=== PATIENT | female | born 1950 | race Caucasian/White ===

== ENCOUNTER 2017-11-18 14:30 | Emergency (ER) | payer MEDICARE, BC ==
[~2017-11-18] VITALS: Ht 20.3 cm; Wt 95.3 kg
[~2017-11-18 14:30] MED LIST changes: -CEF300 PO
--- NOTE | 2017-11-18 14:38 | ER Report ---
History and Physical Time Seen By MD: 14:37 Hx. of Stated Complaint: ELEVATED D-DIMER. SOB AT REST. HPI/ROS CHIEF COMPLAINT: Short of breath HISTORY OF PRESENT ILLNESS: This is a 67-year-old female who presents to the emergency department with chronic shortness of breath. Patient states that she was over at Dr. Carey's office today to establish care, she did mention to Dr. carcamo that she's had some shortness breath or last several years and has been increasing but no acute changes. Dr. Carey did EKG, collected blood work and noted that there was an elevated d-dimer and subsequently sent her to the emergency department for further evaluation. Patient arrives complaint free at this time no shortness of breath or chest pain. Pulse ox while I'm in the room is 93% on room air. She did tell me that she's had increasing shortness breath over the last several years, but hasn't really thought anything of it. The patient denies aches, fevers, chills, nausea, vomiting, diarrhea. REVIEW OF SYSTEMS: Constitutional: No fever, no chills. Eyes: No discharge. ENT: No sore throat. Cardiovascular: No chest pain, no palpitations. Respiratory: As above. Gastrointestinal: No abdominal pain, no vomiting. Genitourinary: No hematuria. Musculoskeletal: No back pain. Skin: No rashes. Neurological: No headache. Allergies: Coded Allergies: No Known Drug Allergies (Verified , 11/18/17) Home Meds Active Scripts Cefdinir 300 Mg Cap (OMNICEF 300 MG CAP (OR EQUIV)) 300 Mg Cap, 300 MG PO BID for 7 Days, #14 CAP 0 Refills Prov:DILLON CABRERA DRAFTER-BC 11/18/17 Reported Medications Furosemide (LASIX) Unknown Strength Tablet, 40 MG PO PRN, TAB 11/18/17 Aspirin (ASPIRIN) 325 Mg Tablet, 325 MG PO QHS 08/13/13 Discontinued Reported Medications Prednisone 5 Mg Tab (PREDNISONE 5 MG TAB) 5 Mg Tablet, 5 MG PO Q4DAYS 08/13/13 Past Medical/Surgical History Patient has a past medical and surgical history of varicose veins, superficial clot to the right ankle, has been on aspirin, GERD, possible polymyalgia rheumatica, right knee injury, facial skin cancer, skin cancer removed, tonsillectomy, hysterectomy. Hx Smoking: No Smoking Status: Never Smoker Hx Substance Use Disorder: No Hx Alcohol Use: Yes Constitutional Vital Sign - Last 24 Hours 11/18/17 11/18/17 11/18/17 11/18/17 14:35 14:36 15:30 16:00 Temp 98.7 Pulse 87 75 69 Resp 22 B/P (MAP) 143/90 (107) 143/90 134/72 (92) 117/77 (90) Pulse Ox 91 92 91 O2 Delivery Room Air 11/18/17 16:30 Pulse 66 B/P (MAP) 120/71 (87) Pulse Ox 91 Physical Exam General Appearance: The patient is alert, has no immediate need for airway protection and no signs of toxicity. Eyes: Pupils equal and round no pallor or injection. ENT, Mouth: Mucous membranes are moist. Respiratory: There are no retractions, lungs are clear to auscultation. Cardiovascular: Regular rate and rhythm, no murmurs, clicks or rubs. Gastrointestinal: Abdomen is soft and non tender, no masses, bowel sounds normal. Neurological: Alert and oriented 4. Moving all x-rays. Following all commands. No focal neuro deficits. Skin: Warm and dry, no rashes. Musculoskeletal: Neck is supple non tender. Extremities are nontender, nonswollen and have full range of motion. DIFFERENTIAL DIAGNOSIS: After history and physical exam differential diagnosis was considered for shortness of breath including but not limited to pulmonary infectious process, COPD, asthma, pulmonary embolus and congestive heart failure. Medical Decision Making Data Points Laboratory Hematology Test 11/18/17 14:45 Troponin I < 0.012 ng/ml Chemistry Test 11/18/17 14:45 Troponin I < 0.012 ng/ml EKG/Imaging EKG Interpretation 12 lead EKG: Time of EKG 1440. Rhythm: normal sinus rhythm, ventricular rate 72 bpm. [place]: normal QRS: normal ST segments: No ST elevation or depression. QTC 473 ms. Imaging PATIENT NAME: Cathleen De La Cruz : 1950 MR: [id number] V: [id number] EXAM DATE: [id number] ORDERING PHYSICIAN: DILLON CABRERA TECHNOLOGIST: Location: [facility] [place] Patient: Cathleen De La Cruz : 1950 Visit/Account:[id number] Date of Sevice: 11/18/2017 CTA CHEST WW/O CNTR (PULM ANG) HISTORY: sob, elevated d dimer ADDITIONAL HISTORY: None. TECHNIQUE: CTA chest with intravenous contrast. Axial imaging acquired following administration of IV contrast timed for maximum opacification of the pulmonary arterial vasculature. Slab 3-D MIP reconstructed images were also created for further evaluation and interpretation. Reconstruction of the source data set includes multiplanar 2-D in the sagittal and coronal planes and 3-D reconstructed coronal slab MIP series. 3-D images were created by the technologist. Dose Lowering Technique One of the following dose optimization techniques was utilized in the performance of this exam: Automated exposure control; adjustment of the mA and/ or kV according to the patient's size; or use of an iterative reconstruction technique. Specific details can be referenced in the facility's radiology CT exam operational policy. CONTRAST: 75 mL Isovue-370 COMPARISON: PA and lateral chest performed earlier today FINDINGS: Lungs/pleura: There are subtle patchy groundglass opacities throughout the lungs most prominent in the upper lobes. Mild linear stranding in the left lower lobe may represent scarring versus discoid atelectasis. There is no evidence of pleural effusions. Heart/vessels: There is no evidence of pulmonary emboli. The pulmonary trunk is dilated at 4.2 cm. Main pulmonary arteries are prominent as well. There is flattening of the interventricular septum and the right ventricle appears larger than the left. These findings are suggestive of right heart strain Mediastinum/lymph nodes: Negative. Visualized upper abdomen: Small hiatal hernia Bones/soft tissues: Thoracic scoliosis. No aggressive appearing bone lesions are seen Additional findings: None IMPRESSION: There are subtle patchy ground glass opacities of the lungs most prominent in the upper lobes which could represent an acute infectious/inflammatory process. There is no evidence of pulmonary emboli The pulmonary trunk and main pulmonary arteries are dilated. There is flattening of the interventricular septum the right ventricle appears larger than the left. These findings are just above right heart strain Results were called to DILLON CABRERA at 11/18/2017 4:00 PM. Report Dictated By: Renea Feldman MD at 11/18/2017 3:47 PM Report E-Signed By: Renea Feldman MD at 11/18/2017 4:00 PM WSN:[email or web address] ED Course/Re-evaluation Clinical Indication for ER IV: IV Access ED Course The patient was admitted to room. A history physical were obtained. Differential diagnoses were considered. An IV was started. Repeat troponin was negative. EKG in the emergency department showing a normal sinus rhythm, no ST depression or elevation noted. QTc 473ms. CTA was negative for a pulmonary embolus however it is showing some patchy ground opacities which could represent an infectious process. The pulmonary trunk and main pulmonary arteries are dilated which could represent pulmonary hypertension. I did leave a message with Dr. Carey's office after CT results of the CTA, the troponin and the repeat EKG. I wanted to review the results with her. My plan is to treat the patient for community-acquired pneumonia outpatient, and have her follow-up with Dr. Carey in 5-7 days or sooner for follow-up. I discussed these results with the patient and her and discussed with them that she needs to follow-up with Dr. Carey for further evaluation of the pulmonary hypertension. A prescription for Omnicef was sent to the patient's pharmacy. Patient had no other questions or concerns at this time and was discharged home. Patient was stable had good oxygenation at the time of discharge at 93-95% . Decision to Disposition Date: Nov 18, 2017 Decision to Disposition Time: 16:29 Depart Departure Latest Vital Signs Vital Signs Date Time Temp Pulse Resp B/P (MAP) Pulse Ox O2 Delivery O2 Flow Rate FiO2 11/18/17 16:30 66 120/71 (87) 91 11/18/17 14:36 98.7 22 Room Air Impression: Primary Impression: Community acquired pneumonia Condition: Improved Disposition: HOME OR SELF-CARE Referrals: GRACY CAREY MD (PCP) New Scripts Cefdinir 300 Mg Cap (OMNICEF 300 MG CAP (OR EQUIV)) 300 Mg Cap 300 MG PO BID for 7 Days, #14 CAP 0 Refills Prov: DILLON CABRERA DRAFTER-BC 11/18/17 Patient Instructions: Community Acquired Pneumonia (ED) Additional Instructions: You do not have a blood clot in your lungs. Drink plenty of water. Get plenty of rest. Take the Omnicef as directed. Follow-up with Dr. Carey in 5-7 days. You will likely need to see a specialist for Pulmonary Hypertension. Return to the ED for any other concerns or worsening symptoms. Problem Qualifiers Primary Impression: Community acquired pneumonia Laterality: unspecified laterality Qualified Codes: J18.9 - Pneumonia, unspecified organism DILLON CABRERAP- Nov 18, 2017 14:38
--- NOTE | 2017-11-18 15:04 | EKG ---
[place] [facility] [place] NAME: KOLE CHEN : [id number] MR: [id number] V: [id number] EXAM DATE: ORDERING PHYSICIAN: DILLON CABRERA TECHNOLOGIST: EDIL Raymond Reason : SOB Blood Pressure : / mmHG Vent. Rate : 072 BPM Atrial Rate : 072 BPM P-R Int : 156 ms QRS Dur : 106 ms QT Int : 432 ms P-R-T Axes : 014 -19 033 degrees QTc Int : 473 ms Sinus rhythm Borderline left axis Nonspecific interventricular conduction delay No previous ECGs available Confirmed by KEVIN JOHN ([id number]) on 11/19/2017 3:43:49 PM Referred By: Confirmed By:KEVIN JOHN
[2017-11-18] MEDS ORDERED: IOPAMIDOL 76% 75 ML INFUS BTL 75 ML ONE (15:10)
[2017-11-18] MEDS ORDERED: NS 0.9% 20 ML SDV 100 ML ONE (15:10)
--- NOTE | 2017-11-18 16:04 | RADIOLOGY IMAGING REPORT ---
FACILITY: [facility] PATIENT NAME: Cathleen De La Cruz : 1950 MR: [id number] V: [id number] EXAM DATE: ORDERING PHYSICIAN: DILLON CABRERA TECHNOLOGIST: Location: [facility] Patient: Cathleen De La Cruz : 1950 Visit/Account:[id number] Date of Sevice: 11/18/2017 CTA CHEST WW/O CNTR (PULM ANG) HISTORY: sob, elevated d dimer ADDITIONAL HISTORY: None. TECHNIQUE: CTA chest with intravenous contrast. Axial imaging acquired following administration of IV contrast timed for maximum opacification of the pulmonary arterial vasculature. Slab 3-D MIP louise nstructed images were also created for further evaluation and interpretation. Reconstruction of the [place] [facility] [place] set includes multiplanar 2-D in the sagittal and coronal planes and 3-D reconstructed mela nal slab MIP series. 3-D images were created by the technologist. Dose Lowering Technique One of the following dose optimization techniques was utilized in the performance of this exam: Autom ated exposure control; adjustment of the mA and/or kV according to the patient's size; or use of an i terative reconstruction technique. Specific details can be referenced in the facility's radiology C T exam operational policy. CONTRAST: 75 mL Isovue-370 COMPARISON: PA and lateral chest performed earlier today FINDINGS: Lungs/pleura: There are subtle patchy groundglass opacities throughout the lungs most prominent in t he upper lobes. Mild linear stranding in the left lower lobe may represent scarring versus discoid a telectasis. There is no evidence of pleural effusions. Heart/vessels: There is no evidence of pulmonary emboli. The pulmonary trunk is dilated at 4.2 cm. Main pulmonary arteries are prominent as well. There is flattening of the interventricular septum a nd the right ventricle appears larger than the left. These findings are suggestive of right heart st rain Mediastinum/lymph nodes: Negative. Visualized upper abdomen: Small hiatal hernia Bones/soft tissues: Thoracic scoliosis. No aggressive appearing bone lesions are seen Additional findings: None IMPRESSION: There are subtle patchy ground glass opacities of the lungs most prominent in the upper lobes which c ould represent an acute infectious/inflammatory process. There is no evidence of pulmonary emboli The pulmonary trunk and main pulmonary arteries are dilated. There is flattening of the interventric ular septum the right ventricle appears larger than the left. These findings are just above right he art strain Results were called to DILLON CABRERA at 11/18/2017 4:00 PM. Report Dictated By: Renea Feldman MD at 11/18/2017 3:47 PM Report E-Signed By: Renea Feldman MD at 11/18/2017 4:00 PM DOMENICN:[email or web address]
[2017-11-18 16:30] VITALS: BP 120/71
[2017-11-18] MEDS ORDERED: CEF300 PO (16:31)
[2017-11-20] MEDS ORDERED: LEVO750T44 PO (11:09)
== END 2017-11-18 17:00 | disposition home or self-care (01) ==
LOC: ER 14:39
DX: J18.9 Pneumonia, unspecified organism (principal)
CPT/HCPCS: 71275; 84484; 93005; 99284; J7050; Q9967

== ENCOUNTER → 2017-11-18 | Outpatient (CLI) | payer MEDICARE, BC ==
[~2017-11-18] MED LIST: ASPI-757 PO; CEF300 PO; FUR40 PO; FURO20TA19 PO; LOR5 PO; PRE5 PO
[2017-11-18 11:21] LABS: PLATELET COUNT, AUTOMATED 218 K/uL (150-450)
--- NOTE | 2017-11-18 13:00 | RADIOLOGY IMAGING REPORT ---
FACILITY: [facility] PATIENT NAME: Cathleen De La Cruz : 1950 MR: [id number] V: [id number] EXAM DATE: ORDERING PHYSICIAN: GRACY PALAFOX TECHNOLOGIST: Location: [facility] Patient: Cathleen De La Cruz : 1950 Visit/Account:[id number] Date of Sevice: 11/18/2017 Exam type: CHEST PA AND LAT History: Dyspnea, hypoxia, chest discomfort Comparison: None. Findings: There is hyperinflation of the lung dozier. There is no evidence of a pneumothorax or pneumomediasti num. No evidence of focal infiltrates pleural effusions or pulmonary edema. Cardiac lead is normal in size. Central pulmonary arteries are prominent. Mild spondylotic changes thoracic spine IMPRESSION: 1. Hyperinflation lung dozier and prominence of the central pulmonary arteries suggesting COPD. Results were called to GRACY PALAFOX at 11/18/2017 12:55 PM. Report Dictated By: Renea Feldman MD at 11/18/2017 12:52 PM Report E-Signed By: Renea Feldman MD at 11/18/2017 12:55 PM WSN:[email or web address]
== END ==
LOC: LAB 10:56
PROVIDERS: ATTEND Emergency Medicine
DX: R91.8 Other nonspecific abnormal finding of lung field (principal); R06.00 Dyspnea, unspecified; R94.31 Abnormal electrocardiogram [ECG] [EKG]; E66.9 Obesity, unspecified
CPT/HCPCS: 36415; 71046; 82040; 82247; 82310; 82374; 82435; 82565; 82947; 83036; 83735; 83880; 84075; 84132; 84155; 84295; 84443; 84450; 84460; 84484; 84520; 85025; 85379

== ENCOUNTER → 2017-11-21 | Outpatient (CLI) | payer MEDICARE, BC ==
[~2017-11-21] MED LIST changes: +CEF300 PO; +LEVO750T44 PO
--- NOTE | 2017-11-21 17:42 | RADIOLOGY IMAGING REPORT ---
[place] [facility] [place]: Cathleen De La Cruz : 1950 MR: [id number] V: [id number] EXAM DATE: ORDERING PHYSICIAN: GRACY PALAFOX TECHNOLOGIST: [place] [facility] [place] Cathleen De La Cruz : 1950 Visit/Account:[id number] Date of Sevice: 11/21/2017 EXAMINATION: Bilateral lower extremity deep vein duplex Doppler 11/21/2017 2:48 PM History: Bilateral lower extremity edema. Remote history of left calf DVT. COMPARISON: None FINDINGS: Grayscale, duplex and color Doppler interrogation of the bilateral lower extremity deep veins from co mmon femoral vein to proximal calf was completed. The greater saphenous vein in the right and left pr oximal thigh was evaluated using similar technique. Right lower extremity: Common femoral vein negative Femoral vein negative Deep femoral vein - negative Popliteal vein negative Visualized deep calf veins negative Greater saphenous vein in the proximal thigh negative Popliteal fossa: negative Left lower extremity: Common femoral vein negative Femoral vein negative Deep femoral vein - negative Popliteal vein negative Visualized deep calf veins negative Greater saphenous vein in the proximal thigh negative Popliteal fossa: negative IMPRESSION: Negative bilateral lower extremity evaluation for DVT. Report Dictated By: Holland Finch MD at 11/21/2017 5:37 PM Report E-Signed By: Holland Finch MD at 11/21/2017 5:38 PM WSN:[id number]
--- NOTE | 2017-11-21 17:43 | RADIOLOGY IMAGING REPORT ---
FACILITY: [facility] PATIENT NAME: Cathleen De La Cruz : 1950 MR: [id number] V: [id number] EXAM DATE: ORDERING PHYSICIAN: GRACY PALAFOX TECHNOLOGIST: Location: [facility] [place] Patient: Cathleen De La Cruz : 1950 Visit/Account:[id number] Date of Sevice: 11/21/2017 DEXA Scan 11/21/2017 2:48 PM HISTORY: Postmenopausal estrogen deficiency Comparison: None available. LUMBAR SPINE: The bone mineral density (BMD) measured from L1-L4 correlates with a Z-score -0.6 and a T-score of -1 .2 which is mildly osteopenic as defined by the World Health Organization. The corresponding risk of fracture in the lumbar spine is increased 2-3 times compared with a young adult reference population . HIP: Bone mineral density (BMD) measured in the Left total hip region correlates with a Z-score -0.8 and a T-score of -1.4 which is mildly osteopenic as defined by the World Health Organization. The corresp onding risk of fracture in the hip is increased 2-3 times compared with a [facility] adult [facility]. Bone mineral density (BMD) measured in the Femoral Neck region measures 0.797 g/cm2. T-score is -1.7 . Impression: 1. Lumbar spine: Mild osteopenia. 2. Left Total Hip: Mild osteopenia. 3. Femoral Neck: Bone Mineral Density is 0.797 g/cm2. Moderate osteopenia. The next DEXA scan of this patient should include the following sites: L1-L4 and the left hip. FRAX? WHO Fracture Risk Assessment Tool link: <http://www.shef.ac.uk/FRAX/tool.jsp?locationValue=9> PLEASE NOTE: 1) The World Health Organization defines low BMD as follows: T-score Normal > -1 Osteopenia < -1 and > -2.5 Osteoporosis < -2.5 without fractures Established osteoporosis < -2.5 with fractures 2) In general, you may wish to consider: Diagnosis Treatment Follow-up DEXA Normal BMD Prevention 2-3 years Osteopenia Prevention/therapy 1-2 years Osteoporosis Therapy Yearly 3) Fracture risk estimated from the T-score is more accurate for vertebral fractures (often spontane ous) than for hip fractures. Report Dictated By: Holland Finch MD at 11/21/2017 5:38 PM Report E-Signed By: Holland Finch MD at 11/21/2017 5:39 PM WSN:[id number]
== END ==
LOC: US 03:11
PROVIDERS: ATTEND Emergency Medicine
DX: Z13.820 Encounter for screening for osteoporosis (principal); M85.89 Other specified disorders of bone density and structure, multiple sites; R60.0 Localized edema; Z78.0 Asymptomatic menopausal state
CPT/HCPCS: 77080; 93970

== ENCOUNTER → 2017-11-26 | Outpatient (CLI) | payer MEDICARE, BC ==
--- NOTE | 2017-11-27 20:28 | RADIOLOGY IMAGING REPORT ---
FACILITY: [facility] [place] PATIENT NAME: KOLE CHEN : [id number] MR: [id number] V: [id number] EXAM DATE: ORDERING PHYSICIAN: GRACY PALAFOX TECHNOLOGIST: Marianna Langford EXAMINATION:TWO-DIMENSIONAL ECHOCARDIOGRAPH REASON:ENLARGED PULMONARY ARTERIES 2D Measurements (normal values in centimeters) LV endLV endRV endVent.LV PostAorticLeftPercent DiastolicSystolicDiastolicSeptumWallRootAtriumShortening (3.5-5.7)(0.9-2.6)(0.6-1.1)(0.6-1.1)(2.0-3.7)(1.9-4.0)(25-35%) [id number] STROKE VOLUME: 78ml ESTIMATED EJECTION FRACTION:55% PARASTERNAL LONG AXIS: Overall left ventricular systolic function does appear to be normal. The right ventricle appears to be mildly enlarged. Other chamber sizes appear to be normal with the left ventricle being in the upper range of normal size. No wall motion abnormalities are noted. Color examination of the valves reveals a trace of mitral & tricuspid insufficiency. PARASTERNAL SHORT AXIS: Again overall left ventricular systolic function appears to be normal. Right ventricle appears to be mildly enlarged. The aortic valve is trileaflet in configuration with mild aortic sclerosis but no stenosis. Color examination of the aortic valve was unremarkable. Color examination of the pulmonic valve revealed a trace of pulmonic insufficiency. There is also a trace of tricuspid insufficiency noted. APICAL FOUR AND TWO CHAMBER: Normal left ventricular ejection fraction. Right ventricle is mildly enlarged. The other chamber sizes appear to be normal. Aortic valve area & mitral valve area both measure within normal ranges at 2.9 & 3.2cm2 respectively. The left atrial & right atrial volumes are measured within normal ranges at 25 & 24ml/m2. Tricuspid regurgitation Vmax measured 1.78m/sec. Estimated right atrial pressure is 8mm Hg. Right ventricle appears to contract normally & the TAPSE is measured at 2.2. SUBCOSTAL VIEW: No pericardial effusion was noted. No atrioseptal or ventriculoseptal defects were appreciated. Doppler examination of the mitral valve in diastole does reveal the A wave > E wave. Pulmonic artery was not well seen. OVERALL IMPRESSION: 1. Normal left ventricular ejection fraction at 55% with a Grade 1/4 decrease in diastolic function. 2. Mild right ventricular enlargement. Borderline left ventricular enlargement. The atrium appear to be normal in size. 3. No wall motion abnormalities were noted. 4. There is a trace of mitral, tricuspid & pulmonic insufficiency with estimated right ventricular pressures within normal range at 21mm Hg. 5. A trileaflet aortic valve with minimal aortic sclerosis but no stenosis. No aortic insufficiency was noted. 6. Pulmonary arteries were not well visualized. Dictated by: Beba Barkley M.D. on 11/26/2017 at 20:02 Transcribed by: JEROD on 11/27/2017 at 11:21 Approved by: Beba Barkley M.D. on 11/27/2017 at 20:27 [facility]
== END ==
LOC: US 01:36
PROVIDERS: ATTEND Emergency Medicine
DX: I50.30 Unspecified diastolic (congestive) heart failure (principal); I51.7 Cardiomegaly; I34.0 Nonrheumatic mitral (valve) insufficiency; I07.1 Rheumatic tricuspid insufficiency; I37.1 Nonrheumatic pulmonary valve insufficiency; I35.8 Other nonrheumatic aortic valve disorders
CPT/HCPCS: 93306

== ENCOUNTER → 2017-12-18 | Outpatient (CLI) | payer MEDICARE, BC ==
[~2017-12-18] MED LIST changes: +CHOL500045 PO; +ROS10 PO
== END ==
LOC: RESP 01:17
PROVIDERS: ATTEND Emergency Medicine
DX: J18.9 Pneumonia, unspecified organism (principal)
CPT/HCPCS: 94060; 94726; 94729

== ENCOUNTER → 2017-12-19 | Outpatient (CLI) | payer MEDICARE, BC | LOC: LAB 14:08 | PROVIDERS: ATTEND Emergency Medicine | DX: I51.9 Heart disease, unspecified (principal); M85.80 Other specified disorders of bone density and structure, unspecified site | CPT/HCPCS: 36415; 82306; 82465; 83718; 84478 ==

== ENCOUNTER 2018-07-12 12:53 | Inpatient (IN) | payer MEDICARE, BC ==
[~2018-07-12 12:53] MED LIST changes: -ACET-2043 PO; -IOPAMIDOL 76% 75 ML INFUS BTL 75 ML ONE; -NS(*) 0.9% 50 ML BAG 50 ML ONE; -PRED-1 PO; -RIVA15TA PO
[2018-07-12 13:12] VITALS: BP 142/98
[2018-07-12] MEDS ORDERED: INFLUENZA VIRUS VAC 0.5ML SYR IM ONLY ONE (13:35)
[2018-07-12] MEDS ORDERED: CELECOXIB 200 MG CAP PO PRN (13:35)
[2018-07-12] MEDS ORDERED: oxyCODONE HCL 5 MG CAP PO PRN (13:35)
[2018-07-12] MEDS ORDERED: ACETAMINOPHEN 500 MG TAB PO PRN (13:35)
[2018-07-12] MEDS ORDERED: ENOXAPARIN 100 MG/ML SYR ONE (13:47)
--- NOTE | 2018-07-12 14:09 | History & Physical ---
History of Present Illness History of Present Illness 68yo female with a h/o DVT and PMR who went to Urgent Care for CHENEY and right pleuritic CP. About 1.5 months ago, she was started on prednisone for a flare of PMR. She is currently on 15mg of prednisone and is doing well. 3 days, ago in the evening, she noticed sudden onset of right sided chest pain that was worse with taking deep breaths. The pain would wax and wane, but never went away. At it's worst, it was 10/10. She tried ibuprofen without any relief. She noted CHENEY about 2 days ago and that has, also, persisted. She went to an Urgent Care today because she didn't sleep well last night secondary to discomfort and her symptoms have persisted. She was found to have a PE by CTA of the chest. She required 3 liters of O2 to maintain her O2 sats. She is comfortable currently, but still having right sided chest pain. The patient has had 2-3 DVT's in her life. The first was at age 24. She has never smoked and it was not related to travel or estrogen use. She was on warfarin for a couple of years. She then had He mother had her first PE in her 30's. She smoked cigarettes. Her brother had a PE at age of 63. History Problems: (1) History of DVT (deep vein thrombosis) (2) PMR (polymyalgia rheumatica) Status: Acute Home Meds Active Scripts Rosuvastatin Calcium (CRESTOR) 10 Mg Tab, 10 MG PO DAILY, #30 TAB 0 Refills Prov:GRACY PALAFOX MD 12/19/17 Reported Medications Cholecalciferol (Vitamin D3) (VITAMIN D) 5,000 Unit Tablet, 5000 UNIT PO DAILY 12/22/17 Furosemide (LASIX) Unknown Strength Tablet, 40 MG PO PRN, TAB 11/18/17 Aspirin (ASPIRIN) 325 Mg Tablet, 325 MG PO QHS 08/13/13 Allergies: Coded Allergies: No Known Drug Allergies (Verified , 11/18/17) Patient History: FH: chronic obstructive pulmonary disease BROTHER OR SISTER FH: hypertension BROTHER OR SISTER FH: pulmonary embolism MOTHER, , Age:46 FH: stroke FATHER, , Age:72 Other Social/Family Hx . She had a child but he has . Drinks alcohol occasionally. Hx Smoking: No Smoking Status: Never Smoker Hx Alcohol Use: Yes Social Drug Use: Never Review of Systems All Systems Reviewed/Normal: Yes, Except as Noted Exam Vital Signs Vital Signs Date Time Temp Pulse Resp B/P (MAP) Pulse Ox O2 Delivery O2 Flow Rate FiO2 07/12/18 13:12 98.5 83 14 142/98 (113) 92 Nasal Cannula 3.0 General Appearance: Alert, Awake, No Acute Distress Neuro: No Gross deficits ENT: Moist Mucous Membranes Cardiovascular: Regular Rate and Rhythm (Fixed split S1 and S2 at 4th intercostal space on the LSB) Respiratory: Clear to Auscultation GI: Abd Soft and Non-Tender Extremities: No Edema Integumentary: No Jaundice, No Cyanosis Medical Decision Making Data Points Item Value Date Time Sodium Level 137 mmol/L 07/12/18 1008 Potassium Level 3.4 mmol/L L 07/12/18 1008 Chloride Level 101 mmol/L 07/12/18 1008 Carbon Dioxide Level 28 mmol/L 07/12/18 1008 Blood Urea Nitrogen 11 mg/dl 07/12/18 1008 Creatinine 0.90 mg/dl 07/12/18 1008 Random Glucose 115 mg/dl H 07/12/18 1008 Calcium Level 8.7 mg/dl 07/12/18 1008 Total Bilirubin 0.6 mg/dl 07/12/18 1008 Alanine Aminotransferase (ALT/SGPT) 24 U/L 07/12/18 1008 Alkaline Phosphatase 78 U/L 07/12/18 1008 Troponin I 0.015 ng/ml 07/12/18 1008 Aspartate Amino Transf (AST/SGOT) 13 U/L 07/12/18 1008 Albumin 3.3 g/dl L 07/12/18 1008 White Blood Count 12.0 k/uL H 07/12/18 1008 Hemoglobin 12.9 g/dL 07/12/18 1008 Hematocrit 38.6 % 07/12/18 1008 Platelet Count 215 K/uL 07/12/18 1008 Mean Corpuscular Volume 92.2 fL 07/12/18 1008 Neutrophils (%) (Auto) 79.6 % H 07/12/18 1008 Monocytes (%) (Auto) 9.2 % 07/12/18 1008 Lymphocytes (%) (Auto) 10.3 % L 07/12/18 1008 D-Dimer Quantitative (PE/DVT) 3.53 ug/ml H 07/12/18 1008 EKG / Imaging EKG Interpretation pending Imaging Chest CTA - 1. The examination is positive for acute pulmonary embolism. There is a moderate amount of clot seen within the right upper, middle and lower lobe branches. In addition, there is CT evidence of elevated right heart pressures characterized by an elevated RV/LV ratio of 1.2. Only trace amount of clot is identified within left descending pulmonary arterial branches. 2. On the right there are scattered peripheral wedge-shaped airspace opacities consistent with pulmonary infarcts within the upper middle and lower lobes. In addition, there is a trace right pleural effusion Assessment and Plan Problems: (1) PE (pulmonary thromboembolism) Status: Acute Assessment & Plan: She presented with 3 days of pleuritic right CP and 2 days of CHENEY. She has had 2 DVT in the early 1970's, her mother had 3 PE's with the first in her 30's and her brother had a PE at age 63. The patient's BP and P are stable. She is requiring 3 liters of O2 and is not normally on O2. CTA of the chest showed multiple PE's on the right with evidence of pulmonary infarcts. She will be started on Lovenox now, but can change to oral medications tomorrow. Hypercoagulable tests have been ordered. She can take Celebrex, APAP and oxycodone for pain relief. She likely will need anticoagulation for the rest of her life. (2) PMR (polymyalgia rheumatica) Status: Acute Assessment & Plan: Continue chronic prednisone at 15mg. Copies to: GRACY PALAFOX MD; DAVID CHATMAN MD ; Venous Thromboembolism Antithrombotics Is Pt On Any Antithrombotics?: No NAVNEET DRAKE MD Jul 12, 2018 14:09
[2018-07-12] MEDS: ENOXAPARIN 100 MG/ML SYR SC SCH (14:18)
[2018-07-12 16:44] VITALS: BP 122/69
--- NOTE | 2018-07-12 17:12 | EKG ---
FACILITY: [facility] - [place] PATIENT NAME: KOLE CHEN : [id number] MR: [id number] V: [id number] EXAM DATE: ORDERING PHYSICIAN: NAVNEET DRAKE TECHNOLOGIST: MIKE Raymond Reason : PE Blood Pressure : / mmHG Vent. Rate : 072 BPM Atrial Rate : 072 BPM P-R Int : 146 ms QRS Dur : 088 ms QT Int : 416 ms P-R-T Axes : -14 058 -18 degrees QTc Int : 455 ms Normal sinus rhythm ST and T wave abnormality, consider inferior ischemia ST and T wave abnormality, consider anterior ischemia Abnormal ECG When compared with ECG of 18-NOV-2017 14:40, Previous ECG has undetermined rhythm, needs review T wave inversion now evident in Inferior leads T wave inversion now evident in Anterior leads Confirmed by NAVNEET DRAKE ([id number]) on 07/12/2018 5:41:45 PM Referred By: NOELLE Confirmed By:NAVNEET DRAKE
[2018-07-12 19:39] VITALS: BP 115/70
[2018-07-12 23:55] VITALS: BP 112/80
[2018-07-13] MEDS: ENOXAPARIN 100 MG/ML SYR SC SCH (01:22)
[2018-07-13 04:03] VITALS: BP 115/66
[2018-07-13 05:47] LABS: PLATELET COUNT, AUTOMATED 208 K/uL (150-450)
[2018-07-13 07:14] VITALS: BP 107/66
[2018-07-13] MEDS ORDERED: PRED-1 PO (08:55)
[2018-07-13] MEDS ORDERED: ACET-2043 PO (08:55)
[2018-07-13] MEDS ORDERED: RIVA15TA PO (08:55)
--- NOTE | 2018-07-13 08:59 | Hospitalist Depart ---
Discharge Summary Reason for Hosp/Final Diag: (1) PE (pulmonary thromboembolism) Status: Acute Hospital Course & Plan: She presented with chest pain and shortness of breath. A CT scan of the chest did show emboli and infarct in the right lung. She was started on treatment with Lovenox and converted to Xarelto. She will need to take 15mg twice daily for 21 days and then convert to 20mg once daily. She does have both a prior history of DVT and a strong family history of clotting. She will likely require life long anticoagulation. (2) PMR (polymyalgia rheumatica) Status: Acute Hospital Course & Plan: She is on chronic treatment with prednisone. Departure Latest Vital Signs Vital Signs 07/13/18 07/13/18 07/13/18 04:03 07:14 08:07 Temp 97.9 Pulse 67 Resp 10 B/P (MAP) 107/66 (80) Pulse Ox 96 O2 Delivery Nasal Cannula O2 Flow Rate 3.0 Weight (Pounds): 214 Weight (Ounces): 5.0 Result Diagram: 07/13/1852807/13/18528 Condition: Improved Discharge: Home, Self Care Discharge Instructions Home Meds Active Scripts Rivaroxaban 15 Mg (XARELTO 15 MG) 15 Mg Tablet, 15 MG PO BID, #42 TAB Prov:SUNG SUAREZ DO 07/13/18 Prednisone 10 Mg Tab (PREDNISONE 10 MG TAB) 10 Mg Tablet, 15 MG PO QDAY, #30 TAB Prov:SUNG SUAREZ DO 07/13/18 Acetaminophen (ACETAMINOPHEN) 500 Mg Tablet, 1000 MG PO Q8H PRN for PAIN, #30 TAB Prov:SUNG SUAREZ DO 07/13/18 Discontinued Reported Medications Aspirin (ASPIRIN) 325 Mg Tablet, 325 MG PO QHS 08/13/13 Cholecalciferol (Vitamin D3) (VITAMIN D) 5,000 Unit Tablet, 5000 UNIT PO DAILY 12/22/17 Furosemide (LASIX) Unknown Strength Tablet, 40 MG PO PRN, TAB 11/18/17 Discontinued Scripts Rosuvastatin Calcium (CRESTOR) 10 Mg Tab, 10 MG PO DAILY, #30 TAB 0 Refills Prov:GRACY PALAFOX MD 12/19/17 Diet: Regular Activity: As Tolerated Copies to: GRACY PALAFOX MD ; Venous Thromboembolism Antithrombotics Is Pt On Any Antithrombotics?: No SUNG SUAREZ DO Jul 13, 2018 08:59
[2018-07-13] MEDS ORDERED: predniSONE 10 MG TAB PO SCH (09:00)
== END 2018-07-13 10:41 | disposition home or self-care (01) | DRG 176 ==
LOC: MED 12:53
PROVIDERS: ADMIT Internal Medicine; ATTEND Internal Medicine
DX: I26.99 Other pulmonary embolism without acute cor pulmonale (principal); M35.3 Polymyalgia rheumatica; Z86.718 Personal history of other venous thrombosis and embolism; Z90.710 Acquired absence of both cervix and uterus
CPT/HCPCS: 36415; 81241; 81291; 82040; 82247; 82310; 82374; 82435; 82565; 82947; 83090; 84075; 84132; 84155; 84295; 84450; 84460; 84484; 84520; 85025; 85300; 85303; 85306; 86147; 93005; J1650; J7512

== ENCOUNTER → 2018-07-12 | Outpatient (REF) | payer MEDICARE, BC ==
[~2018-07-12] MED LIST changes: +ACET-2043 PO; +PRED-1 PO; +RIVA15TA PO
[2018-07-12 10:35] LABS: PLATELET COUNT, AUTOMATED 215 K/uL (150-450)
== END ==
PROVIDERS: ATTEND Nurse Practitioner Family
DX: R07.9 Chest pain, unspecified (principal); R06.02 Shortness of breath
CPT/HCPCS: 82040; 82247; 82310; 82374; 82435; 82565; 82947; 84075; 84132; 84155; 84295; 84450; 84460; 84484; 84520; 85025; 85379

== ENCOUNTER → 2018-07-12 | Outpatient (CLI) | payer MEDICARE, BC ==
[~2018-07-12] MED LIST changes: +IOPAMIDOL 76% 75 ML INFUS BTL 75 ML ONE; +NS(*) 0.9% 50 ML BAG 50 ML ONE
--- NOTE | 2018-07-12 12:29 | RADIOLOGY IMAGING REPORT ---
FACILITY: [facility] [place] PATIENT NAME: Cathleen De La Cruz : 1950 MR: [id number] V: [id number] EXAM DATE: ORDERING PHYSICIAN: SUNG CANDELARIA TECHNOLOGIST: Location: [facility] Patient: Cathleen De La Cruz : 1950 Visit/Account:[id number] Date of Sevice: 07/12/2018 CT angiogram chest with contrast Indication: Short of breath., Comparison: 11/18/2017 Technique: Axial CT images are obtained through the chest after administration of 75 mL Isovue 370 IV contrast. Reformatted coronal and sagittal images were reviewed as well as coronal MIP images. One of the following dose optimization techniques was utilized in the performance of this exam: auto mated exposure control; adjustment of the mA and/or kV according to patient size; or use of iterative reconstruction technique. Specific details can be referenced in the facility?s radiology CT exam ope rational policy. FINDINGS: The examination is positive for pulmonary embolus. Clot is present predominantly on the right side. A moderate amount of thrombus is seen within the ascending pulmonary artery, middle and lower lobe pul monary arteries. A small amount of nonocclusive thrombus is present within the descending left pulmon moses arteries. No significant clot is identified on the left within a sending branches. There is CT ev idence of elevated right heart strain characterized by an RV LV ratio of 1.2. Within the lateral right upper lobe, there is a small pulmonary infarct present. Within the right mid dle lobe, small infarct is present. A developing small infarct is also noted at the right lung base. No areas of infarct or consolidation are identified on the left. There is a trace right pleural effusion Visualized thoracic spine is unremarkable. The vertebral body heights are well maintained. No acute a lignment abnormality Limited views of the upper abdomen are unremarkable. IMPRESSION: 1. The examination is positive for acute pulmonary embolism. There is a moderate amount of clot seen within the right upper, middle and lower lobe branches. In addition, there is CT evidence of elevated right heart pressures characterized by an elevated RV/LV ratio of 1.2. Only trace amount of clot is identified within left descending pulmonary arterial branches. 2. On the right there are scattered peripheral wedge-shaped airspace opacities consistent with pulmon moses infarcts within the upper middle and lower lobes. In addition, there is a trace right pleural eff usion Results were discussed with SUNG CANDELARIA at 07/12/2018 12:24 PM. Report Dictated By: Faustino Lowery at 07/12/2018 12:10 PM Report E-Signed By: Faustino Lowery at 07/12/2018 12:26 PM WSN:[id number]
== END ==
LOC: CT 11:24
PROVIDERS: ATTEND Nurse Practitioner Family
DX: I26.99 Other pulmonary embolism without acute cor pulmonale (principal); R91.8 Other nonspecific abnormal finding of lung field
CPT/HCPCS: 71275; J7050; Q9967

== ENCOUNTER → 2018-07-17 | Outpatient (CLI) | payer MEDICARE, BC ==
[~2018-07-17] MED LIST changes: +ACET-2043 PO; +CHOL100052 PO; +PRED-1 PO; +RIVA15TA PO
== END ==
LOC: LAB 11:39
PROVIDERS: ATTEND Emergency Medicine
DX: E55.9 Vitamin D deficiency, unspecified (principal); I26.99 Other pulmonary embolism without acute cor pulmonale
CPT/HCPCS: 36415; 81240; 82306

== ENCOUNTER → 2018-10-16 | Outpatient (CLI) | payer MEDICARE, BC ==
[~2018-10-16] MED LIST changes: +FLU180SY11 IM; +OXYGENHOME INH; +RIVA20TA PO
== END ==
LOC: LAB 11:28
PROVIDERS: ATTEND Emergency Medicine
DX: E55.9 Vitamin D deficiency, unspecified (principal); E78.5 Hyperlipidemia, unspecified; I26.99 Other pulmonary embolism without acute cor pulmonale
CPT/HCPCS: 36415; 82306; 82465; 83718; 84478; 85379

== ENCOUNTER → 2019-02-01 | Outpatient (CLI) | payer MEDICARE, BC ==
[~2019-02-01] MED LIST changes: -ROS10 PO; +ROSU10TA PO; +UMEC62.5 INH
[2019-02-01 09:27] LABS: PLATELET COUNT, AUTOMATED 261 K/uL (150-450)
== END ==
LOC: LAB 08:57
PROVIDERS: ATTEND Emergency Medicine
DX: D64.9 Anemia, unspecified (principal)
CPT/HCPCS: 36415; 82306; 82607; 82746; 83540; 83550; 85025

== ENCOUNTER → 2019-03-05 | Outpatient (CLI) | payer MEDICARE, BC ==
[~2019-03-05] MED LIST changes: +FURO-45 PO
--- NOTE | 2019-03-08 15:21 | RADIOLOGY IMAGING REPORT ---
FACILITY: [facility] PATIENT NAME: KOLE CHEN : [id number] MR: [id number] V: [id number] EXAM DATE: ORDERING PHYSICIAN: GARCY PALAFOX TECHNOLOGIST: Irene Steele PROCEDURE: BILATERAL DIGITAL SCREENING MAMMOGRAM WITH CAD ASSISTED INTERPRETATION & 3D TOMOSYNTHESIS REASON FOR STUDY: Screening. FAMILY HISTORY OF BREAST CANCER: None. BREAST PROCEDURES/TREATMENTS: None. COMPARISON: Prior mammograms 03/06/16, 02/09/14, 02/25/12, 02/22/11. VIEWS OBTAINED: 2D & 3D full field CC & MLO. BREAST DENSITY: The breasts are almost entirely fatty. MAMMOGRAM FINDINGS: The parenchymal pattern has remained stable allowing for difference in mammographic technique & patient positioning. IMPRESSION: BIRADS 1: Negative. DIAGNOSTIC CATEGORY 1--NEGATIVE. RECOMMENDATIONS: ROUTINE MAMMOGRAM AND CLINICAL EVALUATION. Dictated by: Renea Feldman M.D. on 03/05/2019 at 15:57 Transcribed by: ACE on 03/08/2019 at 10:12 Approved by: Renea Feldman M.D. on 03/08/2019 at 15:20 [facility]
== END ==
LOC: MAMO 01:32
PROVIDERS: ATTEND Emergency Medicine
DX: Z12.31 Encounter for screening mammogram for malignant neoplasm of breast (principal)
CPT/HCPCS: 77063; 77067

== ENCOUNTER → 2019-05-27 | Outpatient (CLI) | payer MEDICARE, BC ==
[2019-05-27 08:53] LABS: PLATELET COUNT, AUTOMATED 278 K/uL (150-450)
== END ==
LOC: LAB 08:32
PROVIDERS: ATTEND Emergency Medicine
DX: E78.5 Hyperlipidemia, unspecified (principal); E53.8 Deficiency of other specified B group vitamins; E55.9 Vitamin D deficiency, unspecified; M35.3 Polymyalgia rheumatica
CPT/HCPCS: 36415; 82040; 82247; 82306; 82310; 82374; 82435; 82465; 82565; 82607; 82947; 83718; 84075; 84132; 84155; 84295; 84443; 84450; 84460; 84478; 84520; 85025